=== PATIENT | female | born 1970 | race Caucasian/White ===

== ENCOUNTER 2019-12-25 05:20 | Day surgery (SDC) | payer MEDICAID ==
[~2019-12-25] VITALS: Ht 162.6 cm; Wt 105.6 kg
[2019-12-25] VITALS (8 sets, daily range): BP systolic 132–144; BP diastolic 78–89
[~2019-12-25 05:20] MED LIST: NO HOME MEDS; ringers solution, lacted 1,000 ML IV SCH
[2019-12-25] MEDS ORDERED: famotidine 20mg tablet PO ONE (05:30)
[2019-12-25] MEDS ORDERED: cefazolin/dext.iso 2gm/100ml 100 ML IV ONE (05:30)
[2019-12-25] MEDS ORDERED: LIDOcaine 1% (10mg/ml) 2ml vial ONE (05:43)
[2019-12-25 06:34] LABS: BASOPHILS # (AUTO) 0.1 X10'3 (0-0.2); BASOPHILS % (AUTO) 1.2 % (0-1); EOSINOPHILS # (AUTO) 0.4 X10'3 (0-0.9); EOSINOPHILS % (AUTO) 7.2 % (0-6); LYMPHOCYTES # (AUTO) 1.6 X10'3 (1.1-4.8); LYMPHOCYTES % (AUTO) 25.9 % (21-51); MEAN CORPUSCULAR HEMOGLOBIN 24.2 PG (27.0-31.0); MEAN CORPUSCULAR HGB CONC 31.7 g/dL (33.0-36.5); MEAN CORPUSCULAR VOLUME 76.2 FL (78-98); MEAN PLATELET VOLUME 7.5 FL (7.4-10.4); MONOCYTES # (AUTO) 0.7 X10'3 (0-0.9); MONOCYTES % (AUTO) 11.3 % (2-12); NEUTROPHILS # (AUTO) 3.3 X10'3 (1.8-7.7); NEUTROPHILS % (AUTO) 54.4 % (42-75); PRE OP HEMOGLOBIN 11.4 g/dL (12.0-16.0); PRE OP PLATELET COUNT 245 X10'3 (140-440); RED BLOOD COUNT 4.72 X10'6 (4.20-5.60); RED CELL DISTRIBUTION WIDTH 16.6 % (11.5-14.5)
[2019-12-25 06:46] LABS: ALBUMIN 3.9 G/DL (3.4-5.0); ALBUMIN/GLOBULIN RATIO 1.1 (1.1-1.5); ALKALINE PHOSPHATASE 72 IU/L (46-116); BLOOD UREA NITROGEN 19 MG/DL (7-18); BUN/CREATININE RATIO 16.2 (6.6-38.0); CALCIUM 9.1 MG/DL (8.5-10.1); CHLORIDE 107 MMOL/L (99-107); CREATININE 1.17 MG/DL (0.40-0.90); PRE OP ALT 28 U/L (30-65); PRE OP ANION GAP 8 (8-16); PRE OP AST 24 U/L (10-37); PRE OP BILIRUB, TOTAL 0.5 MG/DL (0.0-1.0); PRE OP GLUCOSE 99 MG/DL (70-104); PRE OP POTASSIUM 4.6 MMOL/L (3.4-5.1); PRE OP SODIUM 140 MMOL/L (135-145); TOTAL CARBON DIOXIDE 24.9 MMOL/L (24-32); TOTAL PROTEIN 7.5 G/DL (6.4-8.2); eGFR 49 ML/MIN
[2019-12-25] MEDS ORDERED: LIDOcaine 1% 30ml preserv. free vial ONE (07:11)
[2019-12-25] MEDS ORDERED: BUPIVAcaine/PF 2.5 mg/ml (0.25%) 30ml vial ONE (07:11)
[2019-12-25] MEDS ORDERED: fentaNYL/PF 50MCG/1 ML 2ML syringe ONE (07:32)
[2019-12-25] MEDS ORDERED: midazolam 2 mg/2 ml injection ONE (07:32)
[2019-12-25] MEDS ORDERED: sevoflurane 250ml liquid IH ONE (07:40)
[2019-12-25] MEDS ORDERED: propofol inj 20 ML IV ONE (07:52)
[2019-12-25] MEDS ORDERED: LIDOcaine 2% (20mg/ml) 5ml vial ONE (07:52)
[2019-12-25] MEDS ORDERED: ringers solution, lacted 1,000 ML IV SCH (08:13)
[2019-12-25] MEDS ORDERED: ondansetron/PF 4mg/2ml inj IV PRN (08:15)
[2019-12-25] MEDS ORDERED: proCHLORperazine 10 MG/2 ml inj IV PRN (08:15)
[2019-12-25] MEDS ORDERED: meperidine/PF 25mg/ml syringe IV PRN ×3 (08:15)
[2019-12-25] MEDS ORDERED: morphine 4 MG/ML inj SYRINge IV PRN (08:15)
[2019-12-25] MEDS ORDERED: morphine 2 MG/ML inj. syringe IV PRN (08:15)
[2019-12-25] MEDS ORDERED: dexamethasone sod phosphate 4mg/ml inj. ONE ×2 (08:20→08:21)
[2019-12-25] MEDS ORDERED: ondansetron/PF 4mg/2ml inj ONE (08:21)
--- NOTE | 2019-12-25 08:35 | NUR ---
Received from OR via BED, accompanied by Anesthesiologist DR lazcano-- and report given by Anesthesiolgist. PATIENT A&OX4, DENIES PAIN, V/S WNL, NEUROVASCULAR CHECKS INTACT, 20G PIV rUE, SCD ON, left groin dressing cdi
--- NOTE | 2019-12-25 09:25 | NUR ---
PATIENT A&OX4, DENIES PAIN, V/S WNL, NEUROVASCULAR CHECKS INTACT, 20G PIV rUE D/C, SCD OFF, left groin dressing cdI. I HAVE REVIEWED D/C INSTRUCTIONS WITH PATIENT AND FAMILY AND THEY HAVE VERBALIZED UNDERSTANDING. PATIENT D/C HOME WITH ALL BELONGINGS AND FAMILY GAVE TRANSPORT HOME.
== END 2019-12-25 09:25 | disposition home or self-care (01) ==
LOC: PAS 05:20
PROVIDERS: ATTEND Surgery
DX: R59.0 Localized enlarged lymph nodes (principal); E66.9 Obesity, unspecified; Z68.41 Body mass index [BMI] 40.0-44.9, adult; Z98.890 Other specified postprocedural states; Z80.3 Family history of malignant neoplasm of breast; Z80.6 Family history of leukemia
CPT/HCPCS: 36415; 38500; 80053; 85025; J1100; J2001; J2250; J2405; J2704; J3010; J3490; A4215; A4618; A7000; J7120

== ENCOUNTER 2021-07-19 10:51 | Day surgery (SDC) | payer MEDICAID ==
[~2021-07-19] VITALS: Ht 162.6 cm; Wt 103.4 kg
[~2021-07-19 10:51] MED LIST changes: -ringers solution, lacted 1,000 ML IV SCH
[2021-07-19] MEDS ORDERED: normal saline 1000ml 1,000 ML IV SCH ×2 (11:10→13:40)
[2021-07-19 11:30] VITALS: BP 134/78
[2021-07-19] MEDS ORDERED: ASPI-144 PO (11:41)
[2021-07-19] MEDS ORDERED: ACET-2119 PO (11:41)
[2021-07-19] MEDS ORDERED: LIDOcaine 1%/PF 5ML 10 MG/ML VIAL ONE (13:32)
[2021-07-19 14:12] VITALS: BP 125/90
[2021-07-19 14:15] VITALS: BP 124/83
[2021-07-19 14:30] VITALS: BP 128/93
[2021-07-19 14:45] VITALS: BP 133/73
== END 2021-07-19 15:30 | disposition home or self-care (01) ==
LOC: SSTAY O 10:51
PROVIDERS: ATTEND Radiology Diagnostic Radiology
DX: Z45.2 Encounter for adjustment and management of vascular access device (principal); Z85.72 Personal history of non-Hodgkin lymphomas
CPT/HCPCS: 36590